=== PATIENT | male | born 1995 | race Caucasian/White ===

== ENCOUNTER 2019-05-24 16:35 | Emergency (ER) | payer MEDICAID ==
[~2019-05-24] VITALS: Ht 172.7 cm; Wt 86.2 kg
[2019-05-24 16:35] VITALS: BP_SYST 128
[2019-05-24] MEDS ORDERED: IPRATROPIUM/ALBUTEROL SULFATE 3 ML AMPUL.NEB (DUONEB) INH ONE (17:00)
[2019-05-24] MEDS ORDERED: IBUPROFEN 800 MG TABLET PO ONE (17:00)
[2019-05-24] MEDS ORDERED: NACL 0.9% 1,000 ML IV ONE (17:15)
[2019-05-24] MEDS ORDERED: LORazepam 2 MG/ML VIAL IVP ONE (17:30)
[2019-05-24 17:51] LABS: STREPTOCOCCUS A SCREEN (RAPID) NEGATIVE (NEGATIVE)
[2019-05-24 18:12] LABS: INFLUENZA A&B ANTIGEN SCREEN NEGATIVE FOR A & B (NEGATIVE)
[2019-05-24 18:18] VITALS: BP_SYST 138
== END 2019-05-24 18:19 | disposition home or self-care (01) ==
LOC: SED 16:35
DX: J06.9 Acute upper respiratory infection, unspecified (principal); B97.89 Other viral agents as the cause of diseases classified elsewhere; R03.0 Elevated blood-pressure reading, without diagnosis of hypertension; J45.909 Unspecified asthma, uncomplicated
CPT/HCPCS: 71045; 82962; 86403; 86710; 87081; 94640; 96374; 96375; 99284; J2060; 36415